=== PATIENT | male | born 1960 | race Hispanic/Latino ===

== ENCOUNTER → 2018-06-05 | Outpatient (CLI) | payer BC ==
[~2018-06-05] MED LIST: ASPI-555 PO; LOSA50TA25 PO; METF-446 PO; SIMV40TA59 PO; TAMS0.4C32 PO
== END | disposition home or self-care (01) ==
LOC: RAH 13:43
PROVIDERS: ATTEND Family Medicine
DX: R51 Headache (principal); G89.29 Other chronic pain
CPT/HCPCS: 70450

== ENCOUNTER → 2018-11-21 | Outpatient (CLI) | payer BC ==
[~2018-11-21] MED LIST changes: +IOHEXOL-350 75 ML VIAL IV ONE; -LOSA50TA25 PO; +LOSA50TA64 PO
[2018-11-21 12:53] LABS: CREATININE 0.7 mg/dL (0.5-1.5)
== END | disposition home or self-care (01) ==
LOC: RAH 11:47
PROVIDERS: ATTEND Family Medicine
DX: I51.7 Cardiomegaly (principal); L03.116 Cellulitis of left lower limb; M47.815 Spondylosis without myelopathy or radiculopathy, thoracolumbar region; K76.0 Fatty (change of) liver, not elsewhere classified
CPT/HCPCS: 36415; 71275; 82565; 84520; Q9967

== ENCOUNTER → 2019-02-19 | Outpatient (CLI) | payer BC, OTHER ==
[~2019-02-19] MED LIST changes: -IOHEXOL-350 75 ML VIAL IV ONE
== END | disposition home or self-care (01) ==
LOC: SHCH 13:15
PROVIDERS: ATTEND Internal Medicine Cardiovascular Disease
DX: I08.0 Rheumatic disorders of both mitral and aortic valves (principal)
CPT/HCPCS: 93306

== ENCOUNTER → 2019-11-07 | Outpatient (CLI) | payer OTHER | END | disposition home or self-care (01) | LOC: SHCH 12:54 | PROVIDERS: ATTEND Internal Medicine Cardiovascular Disease | DX: R06.00 Dyspnea, unspecified (principal) | CPT/HCPCS: 93306; 93356 ==

== ENCOUNTER → 2019-11-11 | Outpatient (CLI) | payer OTHER ==
[~2019-11-11] MED LIST changes: +REGADENOSON 0.4 MG/5 ML PF SYG IVP SCH
== END | disposition home or self-care (01) ==
LOC: SHCH 08:10
PROVIDERS: ATTEND Internal Medicine Cardiovascular Disease
DX: R06.02 Shortness of breath (principal); I51.7 Cardiomegaly
CPT/HCPCS: 78452; 93017; 96374; A9500 ×2; J2785

== ENCOUNTER → 2020-11-30 | Outpatient (CLI) | payer OTHER ==
[~2020-11-30] VITALS: Ht 172.7 cm; Wt 91.6 kg
[~2020-11-30] MED LIST changes: -ASPI-555 PO; +ASPI-556 PO
== END | disposition home or self-care (01) ==
LOC: SHCH 07:50
PROVIDERS: ATTEND Internal Medicine Cardiovascular Disease
DX: I25.119 Atherosclerotic heart disease of native coronary artery with unspecified angina pectoris (principal); R94.39 Abnormal result of other cardiovascular function study; R07.9 Chest pain, unspecified; R06.00 Dyspnea, unspecified; M54.9 Dorsalgia, unspecified; R51.9 Headache, unspecified
CPT/HCPCS: 78452; 93017; 96374; A9500 ×2

== ENCOUNTER 2020-12-16 05:41 | Day surgery (SDC) | payer OTHER ==
[2020-12-14 09:51] LABS: EOSINOPHILS % (AUTO) 4.6 % (0.0-8.0); HEMATOCRIT 43.5 % (42-54); LYMPHOCYTES % (AUTO) 22.8 % (21.0-51.0); MEAN CORPUSCULAR HEMOGLOBIN 31.9 pg (27.0-33.0); MEAN CORPUSCULAR HGB CONC 34.7 g/dL (32.0-36.0); MEAN CORPUSCULAR VOLUME 91.8 fL (79-99); MONOCYTES % (AUTO) 6.4 % (3.0-13.0); NEUTROPHILS % (AUTO) 64.5 % (40.0-77.0); PLATELET COUNT (AUTO) 283 K/uL (130-400); RED BLOOD CELL COUNT(AUTO) 4.74 MIL/uL (4.50-6.20); RED CELL DISTRIBUTION WIDTH 11.7 % (11.0-15.5); WHITE BLOOD COUNT (AUTO) 6.1 K/uL (4.8-10.8)
[2020-12-14 09:52] LABS: APPEARANCE,URINE Clear (CLEAR); BILIRUBIN,URINE Negative (NEGATIVE); COLOR,URINE Yellow (YELLOW); GLUCOSE, URINE (UA) >=1000 mg/dL (NEGATIVE); KETONES,URINE Negative (NEGATIVE); LEUKOCYTE ESTERASE ,URINE Negative (NEGATIVE); NITRATE,URINE Negative (NEGATIVE); OCCULT BLOOD,URINE Negative (NEGATIVE); PROTEIN,URINE Trace mg/dL (NEGATIVE)
[2020-12-14 09:59] LABS: CREATININE 0.8 mg/dL (0.5-1.5)
[2020-12-14 10:14] LABS: BACTERIA,URINE Rare /HPF (None Seen); RBC,URINE 0-1 /HPF (0-1); SQUAMOUS EPITHELIAL CELL,UR Rare /HPF (0-2); WBC,URINE 0-1 /HPF (0-1)
[2020-12-14 10:34] LABS: INR 0.96 (0.85-1.15); PROTHROMBIN TIME 10.5 SEC (9.6-11.6)
[2020-12-14 10:36] LABS: PARTIAL THROMBOPLASTIN TIME 27.4 SEC (26.3-35.5)
[2020-12-15 13:04] VITALS: BP 160/78
[~2020-12-16] VITALS: Ht 172.7 cm; Wt 94.3 kg
[2020-12-16] VITALS (14 sets, daily range): BP systolic 112–129; BP diastolic 65–77
[~2020-12-16 05:41] MED LIST changes: -ASPI-556 PO; +LOSA100T58 PO; -LOSA50TA64 PO; -REGADENOSON 0.4 MG/5 ML PF SYG IVP SCH; -SIMV40TA59 PO; -TAMS0.4C32 PO
[2020-12-16] MEDS ORDERED: SODIUM CHLORIDE 0.9% 1000ML 1,000 ML IV ONE (06:16)
[2020-12-16] MEDS ORDERED: GABA300C PO (06:56)
[2020-12-16] MEDS ORDERED: ASPI-1197 PO (06:56)
[2020-12-16] MEDS ORDERED: CARV12.511 PO (06:56)
[2020-12-16] MEDS ORDERED: RIVA20TA PO (06:56)
[2020-12-16] MEDS ORDERED: HYDR12.54 PO (06:56)
[2020-12-16] MEDS ORDERED: ATOR40TA69 PO (06:56)
[2020-12-16] MEDS ORDERED: EMPA10TA PO (06:56)
[2020-12-16] MEDS ORDERED: ISOS30TA92 PO (06:56)
[2020-12-16] MEDS ORDERED: AMLO-257 PO (06:58)
[2020-12-16] MEDS ORDERED: HEPARIN SODIUM 1000UNIT/ML 10ML VIAL ONE (07:13)
[2020-12-16] MEDS ORDERED: IOHEXOL 350 MG/ML 100ML INFUS..BTL IV ONE (07:13)
[2020-12-16] MEDS ORDERED: LIDOCAINE HCL 2% 20ML ONE (07:14)
[2020-12-16] MEDS ORDERED: SODIUM CHLORIDE 0.9% 1000ML 1,000 ML IV SCH (08:00)
[2020-12-16] MEDS ORDERED: SODIUM CHLORIDE 0.9% 10 ML VIAL IVP SCH (08:30)
[2020-12-16] MEDS ORDERED: DEXTROSE 50%-WATER 50 ML DISP.SYRIN IV PRN (08:30)
[2020-12-16] MEDS ORDERED: INSULIN HUMULIN R 100 UNIT/ML 3ML ONE (10:00)
[2020-12-16] MEDS ORDERED: INSULIN HUMULIN R 100 UNIT/ML 3ML SQ SCH (11:30)
== END 2020-12-16 16:40 | disposition home or self-care (01) ==
LOC: DAH 05:41
PROVIDERS: ATTEND Internal Medicine Cardiovascular Disease
DX: I25.119 Atherosclerotic heart disease of native coronary artery with unspecified angina pectoris (principal); I48.0 Paroxysmal atrial fibrillation; I35.0 Nonrheumatic aortic (valve) stenosis; I25.2 Old myocardial infarction; E11.9 Type 2 diabetes mellitus without complications; E78.00 Pure hypercholesterolemia, unspecified; Z90.49 Acquired absence of other specified parts of digestive tract; Z98.890 Other specified postprocedural states; Z82.49 Family history of ischemic heart disease and other diseases of the circulatory system; Z87.891 Personal history of nicotine dependence; Z72.89 Other problems related to lifestyle; Z79.82 Long term (current) use of aspirin; Z79.84 Long term (current) use of oral hypoglycemic drugs; Z79.899 Other long term (current) drug therapy; Z79.01 Long term (current) use of anticoagulants
CPT/HCPCS: 36415; 71045; 80048; 81001; 82948 ×3; 85025; 85610; 85730; 93005; 93460; A4215; A4216; A4221; A4222; A4223 ×3; A4606; A4663; C1769 ×2; C1894 ×3; J1644 ×2; J1815; J3490; J7030; Q9965 ×2; Q9967

== ENCOUNTER → 2022-04-13 | Outpatient (CLI) | payer OTHER ==
[~2022-04-13] MED LIST changes: +AMLO-257 PO; +ASPI-1197 PO; +ATOR40TA69 PO; +CARV12.511 PO; +EMPA10TA PO; +GABA300C PO; +HYDR12.54 PO; +RIVA20TA PO
== END | disposition home or self-care (01) ==
LOC: SHCH 13:10
PROVIDERS: ATTEND Internal Medicine Cardiovascular Disease
DX: I35.0 Nonrheumatic aortic (valve) stenosis (principal); I48.0 Paroxysmal atrial fibrillation; I11.9 Hypertensive heart disease without heart failure; I25.10 Atherosclerotic heart disease of native coronary artery without angina pectoris; E11.9 Type 2 diabetes mellitus without complications
CPT/HCPCS: 93306

== ENCOUNTER → 2023-03-14 | Outpatient (CLI) | payer OTHER ==
[~2023-03-14] MED LIST changes: -LOSA100T58 PO; +LOSA100T59 PO
== END | disposition home or self-care (01) ==
LOC: SHCH 12:52
PROVIDERS: ATTEND Internal Medicine Cardiovascular Disease
DX: I48.19 Other persistent atrial fibrillation (principal)
CPT/HCPCS: 93306

== ENCOUNTER → 2023-04-10 | Outpatient (CLI) | payer OTHER ==
[2023-04-10 22:06] VITALS: PULSE 62; RESP 17
[2023-04-10 22:27] VITALS: PULSE 59; RESP 17
[2023-04-10 23:01] VITALS: PULSE 57; RESP 16
[2023-04-10 23:28] VITALS: PULSE 55; RESP 18
[2023-04-10 23:37] VITALS: PULSE 56; RESP 18
[2023-04-10 23:47] VITALS: PULSE 55; RESP 14
[2023-04-11] VITALS (14 sets, daily range): PULSE 50–56; RESP 12–19
== END | disposition home or self-care (01) ==
LOC: SLP 20:29
PROVIDERS: ATTEND Internal Medicine Cardiovascular Disease
DX: G47.10 Hypersomnia, unspecified (principal)
CPT/HCPCS: 95811

== ENCOUNTER 2023-05-11 08:50 | Day surgery (SDC) | payer OTHER ==
[2023-05-10 14:04] LABS: BASOPHILS # (AUTO) 0.05 K/uL (0.00-0.20); BASOPHILS % (AUTO) 0.8 % (0.0-5.0); EOSINOPHILS # (AUTO) 0.27 K/uL (0.00-0.70); EOSINOPHILS % (AUTO) 4.4 % (0.0-8.0); HEMATOCRIT 43.3 % (42-54); IMMATURE GRANULOCYTE ABSOLUTE 0.03 K/uL (0-1); LYMPHOCYTES # (AUTO) 1.7 K/uL (1.0-4.8); LYMPHOCYTES % (AUTO) 27.9 % (21.0-51.0); MEAN CORPUSCULAR HEMOGLOBIN 31.2 pg (27.0-33.0); MEAN CORPUSCULAR HGB CONC 33.3 g/dL (32.0-36.0); MEAN CORPUSCULAR VOLUME 93.7 fL (79-99); MONOCYTES # (AUTO) 0.4 K/uL (0.1-1.0); MONOCYTES % (AUTO) 6.8 % (3.0-13.0); NEUTROPHILS # (AUTO) 3.7 K/uL (1.8-7.7); NEUTROPHILS % (AUTO) 59.6 % (40.0-77.0); PLATELET COUNT (AUTO) 357 K/uL (130-400); RED BLOOD CELL COUNT(AUTO) 4.62 MIL/uL (4.50-6.20); RED CELL DISTRIBUTION WIDTH 11.7 % (11.0-15.5); WHITE BLOOD COUNT (AUTO) 6.2 K/uL (4.8-10.8)
[2023-05-10 14:13] VITALS: BP 157/78; PULSE 64; RESP 18
[2023-05-10 14:18] LABS: INR < 0.93 (0.85-1.15); PROTHROMBIN TIME 10.3 SEC (9.6-11.6)
[2023-05-10 14:19] LABS: PARTIAL THROMBOPLASTIN TIME 28.2 SEC (26.3-35.5)
[2023-05-10 14:23] LABS: CREATININE 0.8 mg/dL (0.5-1.5); POTASSIUM 4.1 mmol/L (3.5-5.1)
[2023-05-11] VITALS (10 sets, daily range): BP systolic 128–142; BP diastolic 66–73; PULSE 51–95; RESP 14–19
[~2023-05-11] VITALS: Ht 172.7 cm; Wt 93.7 kg
[~2023-05-11 08:50] MED LIST changes: -AMLO-257 PO; +AMLO-258 PO; -ASPI-1197 PO; -ATOR40TA69 PO; +AZAT50TA17 PO; -CARV12.511 PO; +CARV25TA PO; +DRON400T7 PO; -EMPA10TA PO; +EMPA25TA PO; +ISOS30TA92 PO; +MESA1.2T PO; +NITR0.4T50 SL
[2023-05-11] MEDS ORDERED: 0.9%NACL 1000ML 1,000 ML IV ONE (11:25)
[2023-05-11] MEDS ORDERED: NICARDIPINE 25MG INJ IV ONE (14:21)
[2023-05-11] MEDS ORDERED: LIDOCAINE HCL 1% MDV 50ML VIAL ONE (14:21)
[2023-05-11] MEDS ORDERED: HEPARIN 10,000 UNIT/10ML (1,000 UNIT/ML) VIAL ONE (14:21)
[2023-05-11] MEDS ORDERED: SODIUM BICARB 50MEQ 50ML VIAL 50 ML ONE (14:21)
[2023-05-11] MEDS ORDERED: IOHEXOL 350 MG/ML 100ML INFUS..BTL IV ONE (14:21)
[2023-05-11] MEDS ORDERED: FENTANYL CITRATE PF 50 MCG/1 ML 2ML VIAL ONE (14:39)
[2023-05-11] MEDS ORDERED: MIDAZOLAM HCL 1 MG/ML 2ML VIAL ONE (14:39)
[2023-05-11] MEDS ORDERED: 0.9%NACL 1000ML 1,000 ML IV SCH (16:00)
== END 2023-05-11 20:20 | disposition home or self-care (01) ==
LOC: DAH 08:50
PROVIDERS: ATTEND Internal Medicine Cardiovascular Disease
DX: I35.0 Nonrheumatic aortic (valve) stenosis (principal); I25.10 Atherosclerotic heart disease of native coronary artery without angina pectoris; I48.0 Paroxysmal atrial fibrillation; E11.9 Type 2 diabetes mellitus without complications; Z79.84 Long term (current) use of oral hypoglycemic drugs; Z79.899 Other long term (current) drug therapy; Z79.01 Long term (current) use of anticoagulants; Z90.49 Acquired absence of other specified parts of digestive tract; Z98.890 Other specified postprocedural states; Z87.891 Personal history of nicotine dependence
CPT/HCPCS: 80048; 85025; 85610; 85730; 36415; 71045; 93005; 93460; 82948 ×2; A4223 ×3; Q9965; C1769 ×2; C1894 ×4; C1760; J3010; J7030; J3490 ×2; J2250; J1644; Q9967; A4215; A4222; A4221; A4663; A4216; A4606; 99156; 99157

== ENCOUNTER 2023-11-22 06:33 | Day surgery (SDC) | payer OTHER ==
[2023-11-20 15:01] LABS: BASOPHILS # (AUTO) 0.06 K/uL (0.00-0.20); BASOPHILS % (AUTO) 0.8 % (0.0-5.0); EOSINOPHILS # (AUTO) 0.23 K/uL (0.00-0.70); EOSINOPHILS % (AUTO) 2.9 % (0.0-8.0); HEMATOCRIT 44.5 % (42-54); IMMATURE GRANULOCYTE ABSOLUTE 0.03 K/uL (0-1); LYMPHOCYTES # (AUTO) 1.5 K/uL (1.0-4.8); LYMPHOCYTES % (AUTO) 18.9 % (21.0-51.0); MEAN CORPUSCULAR HEMOGLOBIN 31.1 pg (27.0-33.0); MEAN CORPUSCULAR HGB CONC 34.2 g/dL (32.0-36.0); MONOCYTES # (AUTO) 0.5 K/uL (0.1-1.0); NEUTROPHILS # (AUTO) 5.7 K/uL (1.8-7.7); PLATELET COUNT (AUTO) 308 K/uL (130-400); RED BLOOD CELL COUNT(AUTO) 4.89 MIL/uL (4.50-6.20); RED CELL DISTRIBUTION WIDTH 11.9 % (11.0-15.5)
[2023-11-20 15:06] LABS: CREATININE 0.7 mg/dL (0.5-1.3); POTASSIUM 4.2 mmol/L (3.5-5.1)
[2023-11-20 15:09] LABS: INR <= 0.93 (0.85-1.15); PROTHROMBIN TIME 10.2 SEC (9.6-11.6)
[2023-11-20 15:11] LABS: PARTIAL THROMBOPLASTIN TIME 27.9 SEC (26.3-35.5)
[2023-11-20 15:18] LABS: APPEARANCE,URINE CLEAR (CLEAR); BILIRUBIN,URINE NEGATIVE (NEGATIVE); COLOR,URINE COLORLESS (YELLOW); GLUCOSE, URINE (UA) >=1000 mg/dL (NEGATIVE); KETONES,URINE NEGATIVE (NEGATIVE); LEUKOCYTE ESTERASE ,URINE NEGATIVE Leu/uL (NEGATIVE); NITRATE,URINE NEGATIVE (NEGATIVE); OCCULT BLOOD,URINE NEGATIVE (NEGATIVE); PROTEIN,URINE NEGATIVE (NEGATIVE); UROBILINOGEN,URINE 0.2 mg/dL (0.2-1.0)
[2023-11-20 15:21] LABS: ADD UA MICROSCOPIC YES
[2023-11-20 15:28] LABS: B-TYPE NATRIURETIC PEPTIDE 31 pg/mL (0-100)
[2023-11-20 15:32] VITALS: BP 137/73; PULSE 67; RESP 19
[~2023-11-22] VITALS: Ht 172.7 cm; Wt 90.3 kg
[2023-11-22] VITALS (12 sets, daily range): BP systolic 113–130; BP diastolic 39–64; PULSE 40–76; RESP 14–16
[~2023-11-22 06:33] MED LIST changes: -DRON400T7 PO; +EMPA1TAB7 PO; -EMPA25TA PO; -GABA300C PO; -HYDR12.54 PO; +HYDR25TA PO; -METF-446 PO; +OMEP40CA21 PO; +PRAV40TA3 PO; +PREG100C56 PO; +RANO500T6 PO
[2023-11-22] MEDS ORDERED: 0.9%NACL 1000ML 1,000 ML IV ONE (08:15)
[2023-11-22] MEDS ORDERED: SODIUM BICARB 50MEQ 50ML VIAL 50 ML ONE (09:34)
[2023-11-22] MEDS ORDERED: BIVALIRUDIN 250 MG/VIAL IV ONE (09:34)
[2023-11-22] MEDS ORDERED: LIDOCAINE HCL 400MG/20ML VIAL ONE (09:34)
[2023-11-22] MEDS ORDERED: IOHEXOL-350 75 ML VIAL IV ONE ×2 (09:34→11:23)
[2023-11-22] MEDS ORDERED: MIDAZOLAM HCL 1 MG/ML 2ML VIAL ONE (10:18)
[2023-11-22] MEDS ORDERED: FENTANYL CITRATE PF 50 MCG/1 ML 2ML VIAL ONE ×3 (10:18→11:59)
[2023-11-22] MEDS ORDERED: CLOPIDOGREL 300MG TAB ONE (11:29)
[2023-11-22] MEDS ORDERED: ASPIRIN 325MG EC TAB PO ONE (11:29)
[2023-11-22] MEDS ORDERED: 0.9%NACL 10ML VIAL IV SCH (13:00)
[2023-11-22] MEDS: TRAMADOL HCL 50 MG TABLET PO ONE (16:23)
== END 2023-11-22 17:35 | disposition home or self-care (01) ==
LOC: DAH 06:33 → EDSTATUS 13:00 → DAH 17:35
PROVIDERS: ATTEND Internal Medicine Cardiovascular Disease
DX: I35.0 Nonrheumatic aortic (valve) stenosis (principal); I25.112 Atherosclerotic heart disease of native coronary artery with refractory angina pectoris; I25.2 Old myocardial infarction; J98.4 Other disorders of lung; G47.30 Sleep apnea, unspecified; E78.5 Hyperlipidemia, unspecified; I48.0 Paroxysmal atrial fibrillation; E11.59 Type 2 diabetes mellitus with other circulatory complications; Z79.899 Other long term (current) drug therapy; Z98.890 Other specified postprocedural states; Z82.49 Family history of ischemic heart disease and other diseases of the circulatory system; Z90.49 Acquired absence of other specified parts of digestive tract; Z79.01 Long term (current) use of anticoagulants
CPT/HCPCS: 80048; 83880; 85025; 85610; 85730; 81001; 36415; 71045; 93005 ×2; 93460; 92978; 82948 ×2; C9600; C1769 ×3; C1887; C1894 ×4; C1725; C1874; C1760; C1893; C1753; J3010 ×3; J3490 ×2; J7030; J2250; J1644; J0583; Q9967 ×2; A4215; A4222; A4221; A4663; A4216; A4606; A4223 ×3; 99156; 99157

== ENCOUNTER 2024-06-03 02:39 | Observation (INO) | payer OTHER ==
[2024-06-03] VITALS (9 sets, daily range): BP systolic 91–122; BP diastolic 51–73; PULSE 53–60; RESP 18; TEMP 97.8–98.6; O2SAT 100
[~2024-06-03] VITALS: Ht 167.6 cm; Wt 92.8 kg
[~2024-06-03 02:39] MED LIST changes: -ISOS30TA92 PO; -RANO500T6 PO; -RIVA20TA PO
[2024-06-03 03:07] LABS: BASOPHILS # (AUTO) 0.06 K/uL (0.00-0.20); BASOPHILS % (AUTO) 1.1 % (0.0-5.0); EOSINOPHILS # (AUTO) 0.26 K/uL (0.00-0.70); HEMATOCRIT 43.1 % (42-54); IMMATURE GRANULOCYTE ABSOLUTE 0.05 K/uL (0-1); LYMPHOCYTES # (AUTO) 1.7 K/uL (1.0-4.8); LYMPHOCYTES % (AUTO) 32.2 % (21.0-51.0); MEAN CORPUSCULAR HEMOGLOBIN 31.1 pg (27.0-33.0); MEAN CORPUSCULAR HGB CONC 33.2 g/dL (32.0-36.0); MEAN CORPUSCULAR VOLUME 93.7 fL (79-99); MONOCYTES # (AUTO) 0.7 K/uL (0.1-1.0); MONOCYTES % (AUTO) 14.1 % (3.0-13.0); NEUTROPHILS # (AUTO) 2.5 K/uL (1.8-7.7); NEUTROPHILS % (AUTO) 46.6 % (40.0-77.0); PLATELET COUNT (AUTO) 240 K/uL (130-400); RED CELL DISTRIBUTION WIDTH 11.8 % (11.0-15.5); WHITE BLOOD COUNT (AUTO) 5.3 K/uL (4.8-10.8)
[2024-06-03 03:21] LABS: CREATININE 0.8 mg/dL (0.5-1.3); POTASSIUM 4.2 mmol/L (3.5-5.1)
[2024-06-03 03:29] LABS: B-TYPE NATRIURETIC PEPTIDE 131 pg/mL (0-100)
[2024-06-03] MEDS: ondanSETRON 4MG INJ IVP ONE (03:37)
[2024-06-03] MEDS: morPHINE 4 MG SYG IVP ONE (03:37)
[2024-06-03 03:42] LABS: INR <= 0.93 (0.85-1.15); PROTHROMBIN TIME 9.9 SEC (9.6-11.6)
[2024-06-03 03:43] LABS: PARTIAL THROMBOPLASTIN TIME 27.5 SEC (26.3-35.5)
[2024-06-03] MEDS ORDERED: AZAT50TA17 PO (03:56)
[2024-06-03] MEDS ORDERED: CLOP-31 PO (03:56)
[2024-06-03] MEDS ORDERED: AMLO-258 PO (03:56)
[2024-06-03] MEDS ORDERED: GABA300C PO (03:56)
[2024-06-03] MEDS ORDERED: MESA1.2T PO (03:56)
[2024-06-03] MEDS ORDERED: METF-446 PO (03:56)
[2024-06-03] MEDS ORDERED: HYDR25TA PO (03:56)
[2024-06-03] MEDS ORDERED: PRAV40TA3 PO (03:56)
[2024-06-03] MEDS ORDERED: CARV12.511 PO (03:56)
[2024-06-03] MEDS ORDERED: LOSA100T59 PO (03:56)
[2024-06-03] MEDS ORDERED: ASPI-1443 PO (03:56)
[2024-06-03] MEDS ORDERED: EMPA10TA PO (03:56)
[2024-06-03 05:18] LABS: ADD UA MICROSCOPIC YES; APPEARANCE,URINE CLEAR (CLEAR); BILIRUBIN,URINE NEGATIVE (NEGATIVE); COLOR,URINE COLORLESS (YELLOW); GLUCOSE, URINE (UA) >=1000 mg/dL (NEGATIVE); KETONES,URINE 20 mg/dL (NEGATIVE); LEUKOCYTE ESTERASE ,URINE NEGATIVE Leu/uL (NEGATIVE); NITRATE,URINE NEGATIVE (NEGATIVE); OCCULT BLOOD,URINE NEGATIVE (NEGATIVE); PH,URINE 5.5 (5.0-8.0); PROTEIN,URINE NEGATIVE (NEGATIVE); UROBILINOGEN,URINE 0.2 mg/dL (0.2-1.0)
[2024-06-03 05:19] LABS: BACTERIA,URINE RARE /HPF (None Seen); RBC,URINE 0-1 /HPF (0-1); WBC,URINE 0-1 /HPF (0-1)
[2024-06-03] MEDS: HEParin 25,000 UNITS/250ML D5W 250 ML IV PRN (05:48)
[2024-06-03] MEDS: dilTIAZem 25MG INJ IVP ONE (05:48)
[2024-06-03] MEDS: HEParin 5,000 UNIT VIAL IV ONE (05:48)
[2024-06-03] MEDS ORDERED: RANO500T6 PO (06:52)
[2024-06-03] MEDS ORDERED: ondanSETRON 4MG INJ IVP PRN (07:00)
[2024-06-03] MEDS ORDERED: acetaMINOPHEN 325 MG TAB PO PRN (07:00)
[2024-06-03] MEDS: metFORmin HCL 500 MG TABLET PO SCH (08:00)
[2024-06-03 08:37] LABS: HEMOGLOBIN A1C 7.5 % (4.0-6.0)
[2024-06-03 08:48] LABS: THYROID STIMULATING HORMONE 4.86 uIU/mL (0.36-3.74)
[2024-06-03] MEDS ORDERED: carVEDIlol 12.5 MG TABLET PO SCH (09:00)
[2024-06-03] MEDS ORDERED: LoSARTan 100 MG TABLET PO SCH (09:00)
[2024-06-03] MEDS ORDERED: amLODIPine 5 MG TAB PO SCH (09:00)
[2024-06-03] MEDS: MESALAMINE 1.2 GM PO SCH (09:00)
[2024-06-03] MEDS ORDERED: hydroCHLOROthiazide 25 MG TABLET PO SCH (09:00)
[2024-06-03] MEDS ORDERED: RANOLAZINE 500 MG TAB.SR.12H PO SCH (09:00)
[2024-06-03] MEDS ORDERED: metoPROLOL tartRATE 1 MG/ML 5ML VIAL IV PRN (09:30)
[2024-06-03] MEDS: metoPROLOL tartRATE 25 MG TAB PO SCH (09:39)
[2024-06-03] MEDS: FAMOTIDINE 20MG TAB PO SCH (09:39)
[2024-06-03] MEDS: EMPAGLIFLOZIN 10MG TABLET PO SCH (09:40)
[2024-06-03] MEDS: cloPIDOgrel 75MG TAB PO SCH (09:40)
[2024-06-03] MEDS: ASPIRIN 81 MG EC TAB PO SCH (09:40)
[2024-06-03] MEDS: AZATHIOPRINE 50 MG TAB PO SCH (09:40)
[2024-06-03] MEDS ORDERED: HEParin-NS 1,000 UNIT/500 ML 1,000 ML IV ONE (10:13)
[2024-06-03] MEDS ORDERED: IOHEXOL 350 MG/ML 100ML INFUS..BTL IV ONE (10:13)
[2024-06-03] MEDS ORDERED: LIDOCAINE HCL 400MG/20ML VIAL ONE (10:13)
[2024-06-03] MEDS ORDERED: NITROGLYCERIN 50MG VIAL ONE (10:14)
[2024-06-03] MEDS ORDERED: BIVALIRUDIN 250 MG/VIAL IV ONE (10:15)
[2024-06-03] MEDS ORDERED: IOHEXOL-350 50ML VIAL IV ONE (10:27)
[2024-06-03] MEDS ORDERED: MIDAZOLAM HCL 1 MG/ML 2ML VIAL ONE (10:38)
[2024-06-03] MEDS ORDERED: FENTanyl CITRate PF 50 MCG/1 ML 2ML VIAL ONE (10:38)
[2024-06-03] MEDS ORDERED: HEParin 10,000 UNIT/10ML (1,000 UNIT/ML) VIAL ONE (10:39)
[2024-06-03] MEDS ORDERED: metoPROLOL tartRATE 1 MG/ML 5ML VIAL IV ONE (11:02)
[2024-06-03] MEDS ORDERED: dilTIAZem 25MG INJ IVP ONE (11:23)
[2024-06-03] MEDS ORDERED: DEXTROSE 50%-WATER 50 ML DISP.SYRIN IV PRN (12:00)
[2024-06-03] MEDS ORDERED: GLUCAGON 1MG KIT 1 MG ML IM PRN (12:00)
[2024-06-03] MEDS: 0.9%NACL 1000ML 1,000 ML IV SCH (12:50)
[2024-06-03 13:30] LABS: PROTHROMBIN TIME 10.8 SEC (9.6-11.6)
[2024-06-03 13:31] LABS: PARTIAL THROMBOPLASTIN TIME 36.1 SEC (26.3-35.5)
[2024-06-03] MEDS: INSULIN humuLIN R 100 UNIT/ML 3ML SQ SCH (16:25)
[2024-06-03] MEDS: GABAPENTIN 300 MG CAPSULE PO SCH (21:01)
[2024-06-03] MEDS: atorVAStatin 10 MG TABLET PO SCH (21:01)
[2024-06-04] MEDS: DRONEDARONE HYDROCHLORIDE 400 MG TABLET PO SCH (00:39)
[2024-06-04 00:55] VITALS: BP 117/69; PULSE 60; RESP 18; TEMP 98.7
[2024-06-04 03:46] LABS: HEMATOCRIT 38.4 % (42-54); MEAN CORPUSCULAR HEMOGLOBIN 30.3 pg (27.0-33.0); MEAN CORPUSCULAR HGB CONC 31.8 g/dL (32.0-36.0); MEAN CORPUSCULAR VOLUME 95.5 fL (79-99); RED BLOOD CELL COUNT(AUTO) 4.02 MIL/uL (4.50-6.20); RED CELL DISTRIBUTION WIDTH 11.7 % (11.0-15.5); WHITE BLOOD COUNT (AUTO) 6.7 K/uL (4.8-10.8)
[2024-06-04 03:55] LABS: CREATININE 0.8 mg/dL (0.5-1.3)
[2024-06-04 04:00] VITALS: BP 120/64; PULSE 68; RESP 18; TEMP 98.3
[2024-06-04 08:00] VITALS: O2SAT 97
[2024-06-04 08:11] VITALS: BP 135/75; PULSE 59; RESP 18; TEMP 98
[2024-06-04] MEDS ORDERED: RIVA20TA PO (09:12)
[2024-06-04] MEDS ORDERED: DRON400T7 PO (09:12)
[2024-06-04] MEDS ORDERED: METO-391 PO (09:54)
[2024-06-04] MEDS: metOPROLol sucCINATE 50 MG TAB.SR.24H PO SCH (11:37)
[2024-06-04 12:05] VITALS: BP 129/75; PULSE 63; RESP 18; TEMP 98.2
[2024-06-05] MEDS ORDERED: hydroCHLOROthiazide 25 MG TABLET PO SCH (09:00)
[2024-06-05] MEDS ORDERED: LoSARTan 100 MG TABLET PO SCH (09:00)
[2024-06-05] MEDS ORDERED: RIVAROXABAN 20 MG TABLET PO SCH (17:00)
== END 2024-06-04 13:48 | disposition home or self-care (01) ==
LOC: EDH 02:39 → INTOOBSV 06:47 → EDHIP 06:47 → 2AH 12:05
PROVIDERS: ADMIT Internal Medicine Sleep Medicine; ATTEND Internal Medicine Sleep Medicine
DX: I25.110 Atherosclerotic heart disease of native coronary artery with unstable angina pectoris (principal); I48.0 Paroxysmal atrial fibrillation; I35.0 Nonrheumatic aortic (valve) stenosis; I10 Essential (primary) hypertension; E78.5 Hyperlipidemia, unspecified; K51.90 Ulcerative colitis, unspecified, without complications; I07.1 Rheumatic tricuspid insufficiency; G47.30 Sleep apnea, unspecified; E11.9 Type 2 diabetes mellitus without complications; R00.0 Tachycardia, unspecified; G43.909 Migraine, unspecified, not intractable, without status migrainosus; R61 Generalized hyperhidrosis; Z79.82 Long term (current) use of aspirin; Z79.84 Long term (current) use of oral hypoglycemic drugs; Z79.899 Other long term (current) drug therapy; Z79.01 Long term (current) use of anticoagulants; Z79.02 Long term (current) use of antithrombotics/antiplatelets; Z95.5 Presence of coronary angioplasty implant and graft; Z87.891 Personal history of nicotine dependence; Z79.4 Long term (current) use of insulin
CPT/HCPCS: 93458; 83036; 84443; 82550; 84484 ×4; 80061; 80048 ×2; 83880 ×2; 85347; 85025; 85610 ×2; 85730 ×2; 82948 ×4; 81001; 36415 ×2; 71045; 93306; 96374; 99291; 96375; 93005 ×2; 85027; C1894 ×2; C1760; Q9965; J3010; J3490 ×5; J7500; J2250; J2405; J2270; J1644 ×3; Q9967 ×2; G0378 ×5; 96372; 99156; 99157; J0583

== ENCOUNTER 2025-07-24 18:23 | Emergency (ER) | payer BC, OTHER ==
[~2025-07-24] VITALS: Ht 172.7 cm; Wt 97.5 kg
--- NOTE | 2025-07-24 18:34 | EKG ---
[facility] Test Date: 2025-07-24 Test Time: 18:28:49 Pat Name: BRANNON CULP Department: ED Room: Gender: M Commanding Officer Garage: [facility] : 1960 Requested By: JODIE CROWDER Order Number: [id number] Reading MD: Sue Moctezuma Measurements Intervals [place] Rate: 131 P: 0 CO: 0 QRS: -4 QRSD: 78 T: 81 QT: 302 QTc: 446 Interpretive Statements Atrial fibrillation Repol abnrm suggests ischemia, diffuse leads Compared to ECG 12/10/2024 18:50:02 Early repolarization now present Possible ischemia now present Sinus rhythm no longer present Electronically Signed On 07-24-2025 21:11:21 ANDROID PLATFORM DEVELOPER by Sue Moctezuma Please click the below link to view image of tracing.
[2025-07-24 19:17] LABS: CREATININE 1.0 mg/dL (0.5-1.3); GLOMERULAR FILTR. RATE CALC 85.0 mL/min (>90); GLUCOSE,RANDOM 242.0 mg/dL (70-105); SODIUM SERUM 141.0 mmol/L (136-145); UREA NITROGEN, BLOOD 18.0 mg/dL (7-18)
[2025-07-24 19:22] LABS: CREATINE KINASE, TOTAL 101.0 U/L (21-232)
[2025-07-24] MEDS: ASPIRIN 325MG TAB PO ONE (19:23)
--- NOTE | 2025-07-24 19:46 | HMCIMG ---
EXAM: CR Chest, 2 View. CLINICAL HISTORY: cp COMPARISON: None provided. FINDINGS: LUNGS: There is no mass, infiltrate, or acute pulmonary abnormality. PLEURAL SPACES: No evidence of pleural effusion or pneumothorax. MEDIASTINUM: Cardiac size and mediastinal contours within normal limits. BONES: No aggressive appearing osseous lesion seen. IMPRESSION: No acute cardiopulmonary pathology is evident. /[place]
[2025-07-24 19:47] LABS: INR 0.98 (0.85-1.15)
[2025-07-24 19:49] LABS: IMMATURE GRANULOCYTE ABSOLUTE 0.03 K/uL (0-1); NUCLEATED RED BLOOD CELLS 0.0 % (0.0-0.19); PLATELET COUNT (AUTO) 301 K/uL (130-400); RED BLOOD CELL COUNT(AUTO) 4.54 MIL/uL (4.50-6.20); RED CELL DISTRIBUTION WIDTH 12.6 % (11.0-15.5); WHITE BLOOD COUNT (AUTO) 8.1 K/uL (4.8-10.8)
--- NOTE | 2025-07-24 21:10 | ERN ---
General Chief Complaint: Chest Pain Stated Complaint: CHEST PAIN Time Seen by MD: 18:25 Time Seen by Midlevel: 18:25 Source: patient History of Present Illness Initial Comments The patient is a 65-year-old male with a past medical history of coronary artery disease, type 2 diabetes, hypertension, hyperlipidemia, and atrial fibrillation on Xarelto presenting to the emergency department with left-sided chest pain that started 30 minutes prior to arrival. Patient reports similar episodes in the past. Allergies: Coded Allergies: No Known Drug Allergies (Unverified Allergy, Unknown, 11/24/15) Home Meds Active Scripts Metoprolol Succinate (Metoprolol Succinate) 50 Mg Tab.er.24h, 50 MG PO DAILY, #90 TAB 3 Refills Prov:MARIAN LUCIANO MD 06/04/24 Dronedarone Hydrochloride (Multaq) 400 Mg Tablet, 400 MG PO BID, #60 TAB 3 Refills Prov:MINNIE AQUINO [facility] 06/04/24 Rivaroxaban (Xarelto) 20 Mg Tablet, 20 MG PO DAILYBKFST, #30 TAB 3 Refills Prov:MINNIE AQUINO [facility] 06/04/24 Reported Medications Dronedarone Hydrochloride (Multaq) 400 Mg Tablet, 1 TAB PO BID for 30 Days, #60 TAB 0 Refills 12/10/24 Pioglitazone HCl (Pioglitazone HCl) 30 Mg Tablet, 1 TAB PO DAILY for 30 Days, #30 TAB 0 Refills 12/10/24 Tamsulosin HCl (Flomax) 0.4 Mg Cap.er.24h, 1 CAP PO DAILY for 30 Days, #30 CAP 0 Refills 12/10/24 Omeprazole (Omeprazole) 40 Mg Capsule.dr, 1 CAP PO DAILY for 30 Days, #30 CAP 0 Refills 12/10/24 Ranolazine (Ranolazine ER) 1,000 Mg Tab.er.12h, 1 TAB PO BID for 30 Days, #60 TAB 0 Refills 12/10/24 Clopidogrel Bisulfate (Plavix) 75 Mg Tablet, 1 TAB PO DAILY for 30 Days, #30 TAB 0 Refills 06/03/24 Pravastatin Sodium (Pravastatin Sodium) 40 Mg Tablet, 1 TAB PO DAILY for 30 Days, #30 TAB 0 Refills 06/03/24 Gabapentin (Neurontin) 300 Mg Capsule, 300 MG PO HS, CAP 06/03/24 Azathioprine (Imuran) 50 Mg Tablet, 50 MG PO BID, TAB 06/03/24 Losartan Potassium (Losartan Potassium) 100 Mg Tablet, 1 TAB PO DAILY for 30 Days, #30 TAB 0 Refills 06/03/24 Empagliflozin (Jardiance) 10 Mg Tablet, 1 TAB PO DAILY for 30 Days, #30 TAB 0 Refills 06/03/24 Mesalamine (Lialda) 1.2 Gram Tablet.dr, 1.2 GM PO BID, TAB 06/03/24 Hydrochlorothiazide (Hydrochlorothiazide) 25 Mg Tablet, 1 TAB PO DAILY for 30 Days, #30 TAB 0 Refills 06/03/24 Metformin HCl (Metformin HCl) 1,000 Mg Tablet, 1000 MG PO DAILY, TAB 06/03/24 Past Medical History Past Medical History: A-Fib, CAD, Diabetes-Type II, High Cholesterol, Heart Disease, Hypertension, Other Medical History Other: " NODULE TO LEFT LUNG", CARDIAC VALVE RX-PENDING Past Surgical History: Other Surgical History Other: HERNIA, CARDIAC STENTS Family History Family History: Negative Social History Social History: Negative ROS Dictation CONSTITUTIONAL: Negative except for HPI HEAD/FACE: Negative except for HPI EENT: Negative except for HPI RESPIRATORY: Negative except for HPI GASTROINTESTINAL/ABDOMINAL: Negative except for HPI GENITOURINARY: Negative except for HPI MUSCULOSKELETAL: Negative except for HPI INTEGUMENTARY: Negative except for HPI NEUROLOGICAL/PSYCH: Negative except for HPI HEMATOLOGIC/LYMPHATIC: Negative except for HPI All Systems Negative, Except as noted above. 13 point review of systems assessed and all negative except for above. Physical Exam Physical Exam Dictation Vital Signs reviewed General Appearance: Alert, oriented x 3, no acute distress, well developed, nourished. Head and Face: non-traumatic. Eyes: PERRL, pink conjunctivas, eyelid no trauma, anterior chamber with arcus senilis. Ears: Pinnas intact and no signs of trauma or erythema ear canals clear and no discharge TM no erythema Nose: No discharge, no bleeding. Oropharynx: Mouth normal, tongue pink, pharynx clear,no erythema, tonsils no exudates, no abscesses noted, mucous membrane moist Neck: Supple, non-tender, no thyromegaly, no masses, no JVD, no bruits Breast:Deferred Chest:No tenderness, no crepitus, no paradoxical movement, no retractions Lungs:Clear, well-ventilated, symmetric, no rales, no wheezing, no rhonchi, no stridor, good breath sounds bilaterally Heart: Regular rate, regular rhythm, no murmur, no gallops Vascular: no peripheral edema, Abdomen: Soft, positive bowel sounds, nondistended, no guarding, nontender, no rebound, no masses no hepatomegaly, no splenomegaly, no Gaitan's sign, no hernias. Rectal: Deferred Genital: Deferred Neurological: Normal speech, motor function intact, sensory function intact Musculoskeletal: Neck nontender, full range of motion, back nontender, full ran ge of motion, Extremities: nontender, full range of motion Skin: Color pink, dry, no turgor, no rash, no lacerations, no abrasions, no contusions. Lymphatic: Deferred Results Laboratory and Microbiology Lab and Micro Result Laboratory Tests Test 07/24/25 18:40 07/24/25 19:43 White Blood Count 8.1 K/uL (4.8-10.8) Red Blood Count 4.54 MIL/uL (4.50-6.20) Hemoglobin 14.4 g/dL (14.0-18.0) Hematocrit 44.4 % (42-54) Mean Corpuscular Volume 97.8 fL (79-99) Mean Corpuscular Hemoglobin 31.7 pg (27.0-33.0) Mean Corpuscular Hemoglobin Concent 32.4 g/dL (32.0-36.0) Red Cell Distribution Width 12.6 % (11.0-15.5) Platelet Count 301 K/uL (130-400) Mean Platelet Volume 11.4 fL (7.5-10.5) H Immature Granulocyte % (Auto) 0.4 % (0-1) Neutrophils (%) (Auto) 72.2 % (40.0-77.0) Lymphocytes (%) (Auto) 18.2 % (21.0-51.0) L Monocytes (%) (Auto) 6.5 % (3.0-13.0) Eosinophils (%) (Auto) 2.0 % (0.0-8.0) Basophils (%) (Auto) 0.7 % (0.0-5.0) Neutrophils # (Auto) 5.9 K/uL (1.8-7.7) Lymphocytes # (Auto) 1.5 K/uL (1.0-4.8) Monocytes # (Auto) 0.5 K/uL (0.1-1.0) Eosinophils # (Auto) 0.16 K/uL (0.00-0.70) Basophils # (Auto) 0.06 K/uL (0.00-0.20) Absolute Immature Granulocyte (auto 0.03 K/uL (0-1) Nucleated Red Blood Cells 0.0 % (0.0-0.19) Prothrombin Time 10.4 SEC (9.6-11.6) Prothromb Time International Ratio 0.98 (0.85-1.15) Activated Partial Thromboplast Time 28.1 SEC (26.3-35.5) Sodium Level 141 mmol/L (136-145) Potassium Level 3.7 mmol/L (3.5-5.1) Chloride Level 104 mmol/L (101-111) Carbon Dioxide Level 26 mmol/L (21-32) Blood Urea Nitrogen 18 mg/dL (7-18) Creatinine 1.0 mg/dL (0.5-1.3) Glomerular Filtration Rate Calc 85 mL/min (>90) Random Glucose 242 mg/dL (70-105) H Total Calcium 9.6 mg/dL (8.5-10.1) Magnesium Level 1.90 mg/dL (1.80-2.40) Total Creatine Kinase 101 U/L (21-232) # Troponin I High Sensitivity 8 ng/L (4-75) 17 ng/L (4-75) B-Type Natriuretic Peptide 173 pg/mL (0-100) H Labs Reviewed?: Yes MDM MDM: The patient is a 65-year-old male with a past medical history of coronary artery disease, type 2 diabetes, hypertension, hyperlipidemia, and atrial fibrillation on Xarelto presenting to the emergency department with left-sided chest pain that started 30 minutes prior to arrival. Patient reports similar episodes in the past. On physical examination the patient appears mildly uncomfortable. An EKG was performed which does not reveal ST elevations. A cardiac workup was initiated. Two troponins were performed and are both within normal ranges. The patient was given 325 mg of aspirin. He was observed in the emergency department for 2 hours. On repeat examination he reports his chest pain subsiding and has no complaints. My plan was to admit the patient for further observation and management given his heart score however he refused and would like to be discharged home. He states he has an appointment with his dupligraph operator later this week and feels comfortable going home. Strict return precautions were discussed with the patient. Differential diagnosis: Acute coronary syndrome, angina, Rationale: Tests considered and ordered secondary to shared decision making include: Previous outside records reviewed: Old ER visits. Risk of complication and/or morbidity or mortality of patient management: None Medications-Per medication reconciliation Need for hospitalization: Patient does meet criteria for hospitalization. Need for emergency major/minor surgery: No There are no social concerns with this patient. Prescription drug management Prescriptions will include symptomatic care Patient's prior external medical records from other ER visits were reviewed by me as indicated. Prior testing and results from previous visits were reviewed. Prior tests were taken into account with medical decision making and resource utilization, independent historian/historians were used to obtain complete medical history. I independently interpreted the test that were performed, results were reviewed by me and considered findings on radiology if ordered. Medical management and examination interpretation discussions were had by me with other qualified healthcare professionals as indicated for the patient's care. ED Course Orders Procedure Category Date Status Time 12 Lead Ekg Tracing- EKG 07/24/25 Complete Technical 18:25 Cbc With Differential LAB 07/24/25 Complete 18:25 Basic Metabolic Panel LAB 07/24/25 Complete 18:25 B-Type Natriuretic LAB 07/24/25 Complete Peptide 18:25 Creatine Kinase, Total LAB 07/24/25 Complete 18:25 Drug Screen Urine LAB 07/24/25 Logged 18:25 Magnesium LAB 07/24/25 Complete 18:25 Pt And Ptt LAB 07/24/25 Complete 18:25 Troponin I High LAB 07/24/25 Complete Sensitivity 18:25 Chest 1vw RAD 07/24/25 Resulted 18:25 Aspirin 325mg Tab PHA 07/24/25 Complete (Aspirin 325mg Tab) 19:00 Troponin I High LAB 07/24/25 Complete Sensitivity 19:40 Current Medications Medications (Trade) Dose Ordered Sig/Harsha Route PRN Reason Start Time Stop Time Status Last Admin Dose Admin Aspirin (Aspirin 325mg Tab) 325 mg ONCE ONCE PO 07/24/25 19:00 07/24/25 19:01 DC 07/24/25 19:23 Vital Signs Date Time Temp Pulse Resp B/P (MAP) Pulse Ox O2 Delivery O2 Flow Rate FiO2 07/24/25 19:34 78 18 131/69 95 Room Air* 0 21 07/24/25 19:24 82 20 131/69 94 Room Air* 0 21 07/24/25 18:24 97.5 85 18 170/81 98 Room Air HEART Score Response (Comments) Value History: Moderate suspicion (+1) 1 EKG: Normal 0 Age: 45-65yrs (+1) 1 Risk Factors: 1-2 risk factors (+1) 1 Initial Troponin: Normal limit (0) 0 Total 3 DX & DISP Disposition: Discharge Departure Impression: Primary Impression: Chest pain Condition: Stable Referrals: MECHE KASPER (PCP) MARIAN LUCIANO MD I have reviewed the case, and I agree with, Diagnosis and Plan I performed the substantive portion of the visit. I have reviewed and personally made and approve the management plan that is documented in the note by myself or the YODIT. I acknowledge for responsibility for the patient's management plan. JODIE CROWDER PAC Jul 24, 2025 21:10
[2025-07-24 21:35] VITALS: BP 134/59; PULSE 67; RESP 18; TEMP 98.2; O2SAT 98
== END 2025-07-24 21:56 | disposition home or self-care (01) ==
LOC: EDH 18:23
DX: R07.89 Other chest pain (principal); E11.9 Type 2 diabetes mellitus without complications; E78.00 Pure hypercholesterolemia, unspecified; I11.9 Hypertensive heart disease without heart failure; I48.91 Unspecified atrial fibrillation; I25.10 Atherosclerotic heart disease of native coronary artery without angina pectoris; Z79.84 Long term (current) use of oral hypoglycemic drugs; Z79.899 Other long term (current) drug therapy; Z79.624 Long term (current) use of inhibitors of nucleotide synthesis; Z79.01 Long term (current) use of anticoagulants; Z79.02 Long term (current) use of antithrombotics/antiplatelets; Z79.631 Long term (current) use of antimetabolite agent; Z95.5 Presence of coronary angioplasty implant and graft
CPT/HCPCS: 36415; 71045; 80048; 82550; 83735; 83880; 84484; 85025; 85610; 85730; 93005; 99285